=== PATIENT | female | born 1955 | race Caucasian/White ===

== ENCOUNTER 2017-08-01 01:45 | Emergency (ER) | payer MEDICARE, MEDICAID ==
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
[2017-08-01] MEDS ORDERED: fentaNYL 100 MCG/2 ML SDV IVPUSH ONE (02:20)
[2017-08-01] MEDS ORDERED: Sodium Chloride 0.9% 10 ML Syringe FLUSH PRN (02:20)
[2017-08-01] MEDS ORDERED: fentaNYL 100 MCG/2 ML SDV IVPUSH PRN (03:07)
[2017-08-01] MEDS: Acetaminophen/oxyCODONE 325-5 MG Tab PO PRN ×2 (04:28→10:37)
[2017-08-01] MEDS ORDERED: Take Home: Acetaminophen/oxyCODONE 325-5 MG, 2 Tab Pack PO ONE (10:47)
[2017-08-01 11:15] VITALS: BP 138/53
== END 2017-08-01 12:55 ==
LOC: CC.ED 01:45
DX: S42.292A Other displaced fracture of upper end of left humerus, initial encounter for closed fracture (principal); Z79.82 Long term (current) use of aspirin; Z79.899 Other long term (current) drug therapy; W19.XXXA Unspecified fall, initial encounter
CPT/HCPCS: 73030; 96374; 96376; 99285; A9270; J3010; 99284

== ENCOUNTER 2017-12-21 01:37 | Inpatient (IN) | payer MEDICARE, MEDICAID ==
--- NOTE | 2017-12-21 01:59 | EDM.PDOC ---
ED HPI GENERAL MEDICAL PROBLEM - General Chief Complaint: Respiratory Problem Stated Complaint: ? aspirated Time Seen by Provider: 12/21/17 01:59 Source of Information: Reports: Patient, EMS - History of Present Illness INITIAL COMMENTS - FREE TEXT/NARRATIVE: Cata is a 62 year old female with PMH of CVA, humeral fracture, dysphagia, COPD , Type II DM, who presents to the ED via EMS from [facility] with c/o fever, cough , and shortness of breath. They report that she has recently had a feeding tube and was supposed to be on a puree/thickened liquid diet, but insisted on eating solid foods. She reportedly signed a waiver re: the risks of aspiration if she eats solid foods. She had G tube placed following ORIF of humeral fracture and secondary ARDS with worsening dysphagia. assisted staff report they believe she aspirated last evening. She has had a fever as high as 102 deg F and she has had a productive cough. Tonight she started to have a difficult time breathing, so EMS was called and patient was sent to ED. Patient is a poor historian and ROS is difficult to obtain. Onset: Sudden Onset Date: 12/20/17 Duration: Getting Worse Location: Reports: Chest Associated Symptoms: Reports: Cough, cough w sputum, Fever/Chills, Shortness of Breath, Weakness. Denies: Confusion, Chest Pain, Diaphoresis, Headaches, Loss of Appetite, Malaise, Nausea/Vomiting, Rash, Seizure, Syncope Treatments MANAGER OF BROADCAST CONTENT: Reports: Acetaminophen, Home Treatments - Related Data Allergies Allergy/AdvReac Type Severity Reaction Status Date / Time No Known Allergies Allergy Verified 12/21/17 02:19 Home Meds: Home Meds Aspirin [Halfprin] 81 mg PO DAILY 02/14/15 [History] Furosemide [Lasix] 40 mg PO DAILY 02/14/15 [History] metFORMIN HCl [Metformin HCl] 850 mg PO BID 02/14/15 [History] Acetaminophen [Tylenol] 650 mg PO TID 08/01/17 [History] Fluticasone Propionate [Flonase] 2 spray NASBOTH QPM 08/01/17 [History] Insulin Glarg,Human.Rec.Analog [LantUS Solostar] 20 units SUBCUT BEDTIME [History] Magnesium 500 mg PO DAILY 08/01/17 [History] Pilocarpine [Pilocar 1% Ophth Soln] 3 drop BUCCAL BID 08/01/17 [History] Simvastatin [Zocor] 10 mg PO DAILY 08/01/17 [History] Albuterol/Ipratropium [DuoNeb 3.0-0.5 MG/3 ML] 1 vial NEB ASDIRECTED 12/21/17 [ History] Bisacodyl [Dulcolax] 10 mg RC ASDIRECTED 12/21/17 [History] Budesonide [Pulmicort] 0.25 mg IH ASDIRECTED 12/21/17 [History] Docusate Sodium/Sennosides [Senokot-S] 2 each PO BEDTIME 12/21/17 [History] Past Medical History HEENT History: Reports: Other (See Below) Other HEENT History: dysphagia from past CVA Cardiovascular History: Reports: Heart Failure, High Cholesterol, Hypertension, Other (See Below) Other Cardiovascular History: CHF and CVA in the past. Respiratory History: Reports: COPD Gastrointestinal History: Reports: Chronic Constipation, GERD Genitourinary History: Reports: UTI, Recurrent Other Genitourinary History: Urinary incontinence at times Other Musculoskeletal History: Patient uses w/c to get around, poor jont mobility. Hx of CVA's and TIA's. Neurological History: Reports: CVA, Neuropathy, Diabetic, Neuropathy, Peripheral Psychiatric History: Reports: Dementia, Depression, Mood Swings Endocrine/Metabolic History: Reports: Diabetes, Type II, Obesity/BMI 30+ - Past Surgical History Other Musculoskeletal Surgeries/Procedures:: Left Humerous fx on 08/01/17 Social & Family History - Tobacco Use Smoking Status *Q: Unknown Ever Smoked Second Hand Smoke Exposure: No ED ROS GENERAL - Review of Systems Review Of Systems: See Below Constitutional: Reports: Fever, Weakness, Fatigue HEENT: Reports: No Symptoms Respiratory: Reports: Shortness of Breath, Cough, Sputum Cardiovascular: Reports: Dyspnea on Exertion GI/Abdominal: Reports: No Symptoms : Reports: No Symptoms Musculoskeletal: Reports: No Symptoms Neurological: Reports: No Symptoms Psychiatric: Reports: No Symptoms ED EXAM, GENERAL - Physical Exam Exam: See Below General Appearance: Alert, WD/WN, Mild Distress Head: Atraumatic, Normocephalic Neck: Normal Inspection, Supple, Non-Tender, Full Range of Motion Respiratory/Chest: Rhonchi, Wheezing, Retractions Cardiovascular: Normal Peripheral Pulses, Regular Rate, Rhythm, No Edema, No Gallop, No JVD, No Murmur, No Rub Peripheral Pulses: 2+: Dorsalis Pedis (L), Dorsalis Pedis (R) GI/Abdominal: Normal Bowel Sounds, Soft, Non-Tender, No Organomegaly, No Distention, No Abnormal Bruit, No Mass Back Exam: Normal Inspection, Full Range of Motion, NT Extremities: Normal Inspection, Normal Range of Motion, Non-Tender, Normal Capillary Refill, No Pedal Edema Neurological: Alert, Oriented, CN II-XII Intact Skin Exam: Warm, Dry, Intact, Normal Color, No Rash Lymphatic: No Adenopathy Course - Vital Signs Last Recorded V/S: Last Vital Signs Temp 96.7 F 12/22/17 03:51 Pulse 69 12/22/17 03:51 Resp 20 12/22/17 03:51 BP 109/55 L 12/22/17 03:51 Pulse Ox 93 L 12/22/17 03:51 - Orders/Labs/Meds Orders: Medication Orders Acetaminophen (Tylenol) 650 mg PO Q4H PRN PRN Reason: Pain (Mild 1-3)/fever Albuterol/Ipratropium (Duoneb 3.0-0.5 Mg/3 Ml) [address] [facility] Last Admin: 12/22/17 08:13 Dose: 3 ml Admin: 12/21/17 19:30 Dose: 3 ml Admin: 12/21/17 16:21 Dose: 3 ml Admin: 12/21/17 11:38 Dose: 3 ml Admin: 12/21/17 07:36 Dose: 3 ml Enoxaparin Sodium (Lovenox) 40 mg SUBCUT DAILY@0800 [facility] Last Admin: 12/22/17 08:14 Dose: 40 mg Furosemide (Lasix) 20 mg IVPUSH DAILY@0800 [facility] Last Admin: 12/22/17 08:13 Dose: 20 mg Admin: 12/21/17 09:31 Dose: 20 mg Lactated Ringer's (Ringers, Lactated) 1,000 mls @ 75 mls/hr IV ASDIRECTED [facility] Last Admin: 12/21/17 20:08 Dose: 75 mls/hr Infusion: 12/21/17 19:28 Dose: 75 mls/hr Admin: 12/21/17 06:08 Dose: 75 mls/hr Clindamycin Phosphate 300 mg/ (Premix) 50 mls @ 100 mls/hr IV 0200,0800,1400, 2000 [facility] Last Admin: 12/22/17 07:53 Dose: 100 mls/hr Infusion: 12/22/17 02:26 Dose: 100 mls/hr Admin: 12/22/17 01:56 Dose: 100 mls/hr Infusion: 12/21/17 19:52 Dose: 100 mls/hr Admin: 12/21/17 19:22 Dose: 100 mls/hr Infusion: 12/21/17 14:44 Dose: 100 mls/hr Admin: 12/21/17 14:14 Dose: 100 mls/hr Infusion: 12/21/17 09:30 Dose: 100 mls/hr Admin: 12/21/17 09:00 Dose: 100 mls/hr Insulin Aspart (Novolog) [address] [facility]; Protocol Last Admin: 12/22/17 08:15 Dose: Not Given Admin: 12/21/17 20:15 Dose: 6 units Admin: 12/21/17 17:13 Dose: Admin: 12/21/17 12:07 Dose: Insulin Detemir (Levemir) [address] [facility] Last Admin: 12/22/17 08:16 Dose: Admin: 12/21/17 17:12 Dose: Magnesium Hydroxide (Milk Of Magnesia) 30 ml PO Q12H PRN PRN Reason: Constipation Methylprednisolone Sodium Succinate (Solu-Medrol) 62.5 mg IVPUSH BID@0800,1600 [facility] Last Admin: 12/22/17 08:13 Dose: 62.5 mg Admin: 12/21/17 16:21 Dose: 62.5 mg Admin: 12/21/17 09:31 Dose: 62.5 mg Non-Formulary Medication (Budesonide [Pulmicort]) 0.[address] [facility] Non-Formulary Medication (Pilocarpine [Pilocar 1% Ophth Soln]) [address] [facility] Nystatin (Nystatin Crm) [address] [facility] Last Admin: 12/22/17 08:16 Dose: 1 applic Admin: 12/21/17 19:32 Dose: 1 applic Labs: Laboratory Tests 12/21/17 12/21/17 12/21/17 Range/Units 02:20 02:20 02:20 WBC 5.6 (5.0-10.0) 10^3/uL RBC 4.49 (4.00-5.50) 10^6/uL Hgb 11.3 L (12.0-16.0) g/dL Hct 37.3 (37.0-47.0) % MCV 83.1 (82.0-94.0) fL MCH 25.2 L (27.0-32.0) pg MCHC 30.3 L (33.0-38.0) g/dL RDW Coeff of Louise 17.3 H (11.0-15.0) % Plt Count 132 L (150-400) 10^3/uL Neut % (Auto) 53.6 (35-85) % Lymph % (Auto) 34.6 (10-55) % Gem % (Auto) 11.2 (0-16) % Eos % (Auto) 0.4 (0-5) % Baso % (Auto) 0.2 (0-3) % Neut # (Auto) 3.01 (1.80-7.00) 10^3/uL Lymph # (Auto) 1.94 (1.00-4.80) 10^3/uL Gem # (Auto) 0.63 (0.00-0.80) 10^3/uL Eos # (Auto) 0.02 (0.00-0.45) 10^3/uL Baso # (Auto) 0.01 10^3/uL D-Dimer, Quantitative 0.49 (0.00-0.50) Sodium 143 (136-145) mEq/L Potassium 3.8 D (3.5-5.0) mEq/L Chloride 105 (98-106) mEq/L Carbon Dioxide 34 H (21-32) mmol/L BUN 21 H (7-18) mg/dL Creatinine 1.4 H (0.6-1.0) mg/dL Est Cr Clr Drug Dosing 36.44 mL/min Estimated GFR (MDRD) 38 L (>=60) mL/min Glucose 126 H D (75-99) mg/dL Calcium 9.3 (8.4-10.1) mg/dL Total Bilirubin 0.2 (0.0-1.0) mg/dL AST 18 (15-37) U/L ALT 16 (12-78) U/L Alkaline Phosphatase 55 (46-116) U/L C-Reactive Protein 5.4 H (0.2-0.8) mg/dL NT-Pro-B Natriuret Pep 1361 H (0-1000) pg/mL Total Protein 7.0 (6.4-8.2) g/dL Albumin 2.7 L (3.4-5.0) g/dL Meds: Medications Generic Name Dose Route Start Last Admin Trade Name Freq PRN Reason Stop Dose Admin Acetaminophen 650 mg 12/21/17 04:41 Tylenol PO Q4H PRN Pain (Mild 1-3)/fever Albuterol/Ipratropium 3 ml 12/21/17 08:00 12/22/17 08:13 Duoneb 3.0-0.5 Mg/3 Ml NEB 3 ml QID NIKKY Administration Enoxaparin Sodium 40 mg 12/22/17 08:00 12/22/17 08:14 Lovenox SUBCUT 40 mg DAILY@0800 NIKKY Administration Furosemide 20 mg 12/21/17 09:15 12/22/17 08:13 Lasix IVPUSH 20 mg DAILY@0800 NIKKY Administration Lactated Ringer's 1,000 mls @ 75 mls/hr 12/21/17 04:41 12/21/17 20:08 Ringers, Lactated IV 75 mls/hr ASDIRECTED NIKKY Administration Clindamycin Phosphate 300 mg/ 50 mls @ 100 mls/hr 12/21/17 09:00 12/22/17 07: 53 Premix IV 100 mls/hr 0200,0800,1400,2000 [facility] Administration Insulin Aspart 0 unit 12/21/17 12:00 12/22/17 08:15 Novolog SUBCUT Not Given WITHMEALSANDBED [facility] Protocol Insulin Detemir 10 unit 12/21/17 17:30 12/22/17 08:16 Levemir SUBCUT Not Given BIDMEALS [facility] Magnesium Hydroxide 30 ml 12/21/17 04:41 Milk Of Magnesia PO Q12H PRN Constipation Methylprednisolone Sodium Succinate 62.5 mg 12/21/17 09:00 12/22/17 08:13 Solu-Medrol IVPUSH 62.5 mg BID@0800,1600 [facility] Administration Non-Formulary Medication 0.25 mg 12/21/17 09:00 Budesonide [Pulmicort] IH ASDIRECTED [facility] Non-Formulary Medication 3 drop 12/21/17 09:00 Pilocarpine [Pilocar 1% Ophth Soln] BUCCAL BID NIKKY Nystatin 0 gm 12/21/17 20:00 12/22/17 08:16 Nystatin Crm TOP 1 applic BID NIKKY Administration Discontinued Medications Generic Name Dose Route Start Last Admin Trade Name Freq PRN Reason Stop Dose Admin Ceftriaxone Sodium 1 gm 12/21/17 04:00 12/21/17 05:14 Rocephin IVPUSH 1 gm Q24H NIKKY Administration Ceftriaxone Sodium 1 gm 12/22/17 08:00 Rocephin IVPUSH DAILY@0800 [facility] Enoxaparin Sodium 40 mg 12/21/17 05:00 12/21/17 05:15 Lovenox SUBCUT 40 mg Q24H NIKKY Administration Azithromycin 500 mg/ Sodium 250 mls @ 250 mls/hr 12/21/17 05:00 12/21/17 05: 14 Chloride IV 250 mls/hr Q24H NIKKY Administration Azithromycin 500 mg/ Sodium 250 mls @ 250 mls/hr 12/22/17 08:00 Chloride IV DAILY@0800 [facility] Clindamycin Phosphate 300 mg/ 50 mls @ 100 mls/hr 12/21/17 09:00 12/21/17 09: 54 Premix IV Not Given Q6H [facility] Clindamycin Phosphate 300 mg/ 50 mls @ 100 mls/hr 12/21/17 12:[address] [facility] Insulin Detemir 10 unit 12/21/17 20:[address] [facility] Departure - Departure Time of Disposition: 03:03 Disposition: Admitted As Inpatient 67 Condition: Fair Clinical Impression: Dysphagia causing pulmonary aspiration with swallowing, Acute renal insufficiency Aspiration into respiratory tract Qualifiers: Encounter type: initial encounter Qualified Code(s): T17.908A - Unspecified foreign body in respiratory tract, part unspecified causing other injury, initial encounter Type II diabetes mellitus Qualifiers: Diabetes mellitus ad terminal makeup operator insulin use: with ad terminal makeup operator use Diabetes mellitus complication status: with hyperglycemia Qualified Code(s): E11.65 - Type 2 diabetes mellitus with hyperglycemia - Discharge Information - Problem List & Annotations (1) Acute renal insufficiency SNOMED Code(s): 281264845 Code(s): N28.9 - DISORDER OF KIDNEY AND URETER, UNSPECIFIED Status: Acute Current Visit: No (2) Aspiration into respiratory tract SNOMED Code(s): 051628208 Code(s): T17.908A - UNSP FB IN RESP TRACT, PART UNSP CAUSING OTH INJURY, INIT Status: Acute Priority: High Current Visit: Yes Qualifiers: Encounter type: initial encounter Qualified Code(s): T17.908A - Unspecified foreign body in respiratory tract, part unspecified causing other injury, initial encounter (3) Type II diabetes mellitus SNOMED Code(s): 36027982 Code(s): E11.9 - TYPE 2 DIABETES MELLITUS WITHOUT COMPLICATIONS Status: Chronic Priority: Medium Current Visit: Yes Qualifiers: Diabetes mellitus shelter insulin use: with ad terminal makeup operator use Diabetes mellitus complication status: with hyperglycemia Qualified Code(s): E11.65 - Type 2 diabetes mellitus with hyperglycemia; Z79.4 - intermediate project manager (current) use of insulin (4) Dysphagia causing pulmonary aspiration with swallowing SNOMED Code(s): 61276633 Code(s): R13.19 - OTHER DYSPHAGIA Status: Acute Current Visit: No - Problem List Review Problem List Initiated/Reviewed/Updated: Yes - Assessment/Plan Admission H&P: Please use this note as an admission H&P Plan: Admit acute with telemetry to Dr. Hirsch IV Rocephin and azithromycin LR @ 75 mL/hr Dr. Hirsch to see patient in am
[2017-12-21] MEDS ORDERED: cefTRIAXone 1 GM Vial IVPUSH SCH (04:00)
[2017-12-21] MEDS ORDERED: Acetaminophen 325 MG Tab PO PRN (04:41)
[2017-12-21] MEDS ORDERED: Magnesium Hydroxide 400 MG/5 ML Susp 30 ML Cup PO PRN (04:41)
[2017-12-21] MEDS ORDERED: Enoxaparin 40 MG/0.4 ML Syringe SUBCUT SCH (05:00)
[2017-12-21] MEDS ORDERED: Azithromycin 500 MG in Sodium Chloride 0.9% 250 ML IV SCH (05:00)
[2017-12-21] MEDS: Lactated Ringers 1,000 ML IV SCH ×2 (06:08→20:08)
[2017-12-21] MEDS: Albuterol/Ipratropium 3.0-0.5 MG/3 ML Neb Soln NEB SCH ×4 (07:36→19:30)
[2017-12-21] MEDS ORDERED: PILOCARPINE BUCCAL SCH (09:00)
[2017-12-21] MEDS ORDERED: Non-Formulary Medication 1 Each (Budesonide [Pulmicort] 0.25 MG) IH SCH (09:00)
[2017-12-21] MEDS: Clindamycin Phosphate in D5W 300 MG in Premix Bag 1 BAG IV SCH ×6 (09:00→19:22)
[2017-12-21] MEDS ORDERED: Clindamycin Phosphate in D5W 300 MG in Premix Bag 1 BAG IV SCH ×4 (09:00→12:00)
[2017-12-21] MEDS: methylPREDNISolone Sodium Succinate 125 MG/2 ML SDV IVPUSH SCH ×2 (09:31→16:21)
[2017-12-21] MEDS: Furosemide 20 MG/2 ML VIAL IVPUSH SCH (09:31)
--- NOTE | 2017-12-21 11:37 | PCM.PN ---
- General Info Date of Service: 12/21/17 Admission Dx/Problem (Free Text): Aspiration Pneumonia Functional Status: Denies: Tolerating Diet, Ambulating - Review of Systems General: Reports: Fever, Weakness, Fatigue HEENT: Reports: No Symptoms Pulmonary: Reports: Shortness of Breath, Cough, Sputum Cardiovascular: Denies: Chest Pain, Edema, Lightheadedness Gastrointestinal: Denies: Abdominal Pain, Nausea, Vomiting Skin: Reports: No Symptoms - Patient Data Vitals - Most Recent: Last Vital Signs Temp 99.8 F 12/21/17 07:18 Pulse 83 12/21/17 07:18 Resp 20 12/21/17 07:18 BP 105/59 L 12/21/17 07:18 Pulse Ox 97 12/21/17 07:18 Weight - Most Recent: 204 lb Lab Results Last 24 Hours: Laboratory Results - last 24 hr 12/21/17 12/21/17 12/21/17 Range/Units 02:20 02:20 02:20 WBC 5.6 (5.0-10.0) 10^3/uL RBC 4.49 (4.00-5.50) 10^6/uL Hgb 11.3 L (12.0-16.0) g/dL Hct 37.3 (37.0-47.0) % MCV 83.1 (82.0-94.0) fL MCH 25.2 L (27.0-32.0) pg MCHC 30.3 L (33.0-38.0) g/dL RDW Coeff of Louise 17.3 H (11.0-15.0) % Plt Count 132 L (150-400) 10^3/uL Neut % (Auto) 53.6 (35-85) % Lymph % (Auto) 34.6 (10-55) % [place] % (Auto) 11.2 (0-16) % Eos % (Auto) 0.4 (0-5) % Baso % (Auto) 0.2 (0-3) % Neut # (Auto) 3.01 (1.80-7.00) 10^3/uL Lymph # (Auto) 1.94 (1.00-4.80) 10^3/uL [place] # (Auto) 0.63 (0.00-0.80) 10^3/uL Eos # (Auto) 0.02 (0.00-0.45) 10^3/uL Baso # (Auto) 0.01 10^3/uL D-Dimer, Quantitative 0.49 (0.00-0.50) Sodium 143 (136-145) mEq/L Potassium 3.8 D (3.5-5.0) mEq/L Chloride 105 (98-106) mEq/L Carbon Dioxide 34 H (21-32) mmol/L BUN 21 H (7-18) mg/dL Creatinine 1.4 H (0.6-1.0) mg/dL Est Cr Clr Drug Dosing 36.44 mL/min Estimated GFR (MDRD) 38 L (>=60) mL/min Glucose 126 H D (75-99) mg/dL POC Glucose (75-105) mg/dl Calcium 9.3 (8.4-10.1) mg/dL Total Bilirubin 0.2 (0.0-1.0) mg/dL AST 18 (15-37) U/L ALT 16 (12-78) U/L Alkaline Phosphatase 55 (46-116) U/L C-Reactive Protein 5.4 H (0.2-0.8) mg/dL NT-Pro-B Natriuret Pep 1361 H (0-1000) pg/mL Total Protein 7.0 (6.4-8.2) g/dL Albumin 2.7 L (3.4-5.0) g/dL 12/21/17 Range/Units 07:49 WBC (5.0-10.0) 10^3/uL RBC (4.00-5.50) 10^6/uL Hgb (12.0-16.0) g/dL Hct (37.0-47.0) % MCV (82.0-94.0) fL MCH (27.0-32.0) pg MCHC (33.0-38.0) g/dL RDW Coeff of Louise (11.0-15.0) % Plt Count (150-400) 10^3/uL Neut % (Auto) (35-85) % Lymph % (Auto) (10-55) % [place] % (Auto) (0-16) % Eos % (Auto) (0-5) % Baso % (Auto) (0-3) % Neut # (Auto) (1.80-7.00) 10^3/uL Lymph # (Auto) (1.00-4.80) 10^3/uL [place] # (Auto) (0.00-0.80) 10^3/uL Eos # (Auto) (0.00-0.45) 10^3/uL Baso # (Auto) 10^3/uL D-Dimer, Quantitative (0.00-0.50) Sodium (136-145) mEq/L Potassium (3.5-5.0) mEq/L Chloride (98-106) mEq/L Carbon Dioxide (21-32) mmol/L BUN (7-18) mg/dL Creatinine (0.6-1.0) mg/dL Est Cr Clr Drug Dosing mL/min Estimated GFR (MDRD) (>=60) mL/min Glucose (75-99) mg/dL POC Glucose 105 (75-105) mg/dl Calcium (8.4-10.1) mg/dL Total Bilirubin (0.0-1.0) mg/dL AST (15-37) U/L ALT (12-78) U/L Alkaline Phosphatase (46-116) U/L C-Reactive Protein (0.2-0.8) mg/dL NT-Pro-B Natriuret Pep (0-1000) pg/mL Total Protein (6.4-8.2) g/dL Albumin (3.4-5.0) g/dL Ozzy Results Last 24 Hours: Microbiology 12/21/17 06:31 Gram Stain - Final Sputum - Expectorated Med Orders - Current: Current Medications Acetaminophen (Tylenol) 650 mg PO Q4H PRN PRN Reason: Pain (Mild 1-3)/fever Albuterol/Ipratropium (Duoneb 3.0-0.5 Mg/3 Ml) 3 ml NEB QID [facility] Last Admin: 12/21/17 07:36 Dose: 3 ml Enoxaparin Sodium (Lovenox) 40 mg SUBCUT DAILY@0800 [facility] Furosemide (Lasix) 20 mg IVPUSH DAILY@0800 [facility] Last Admin: 12/21/17 09:31 Dose: 20 mg Lactated Ringer's (Ringers, Lactated) 1,000 mls @ 75 mls/hr IV ASDIRECTED [facility] Last Admin: 12/21/17 06:08 Dose: 75 mls/hr Clindamycin Phosphate 300 mg/ (Premix) 50 mls @ 100 mls/hr IV 0200,0800,1400, 2000 [facility] Last Admin: 12/21/17 09:00 Dose: 100 mls/hr Insulin Aspart (Novolog) 0 unit SUBCUT WITHMEALSANDBED [facility]; Protocol Insulin Detemir (Levemir) 10 unit SUBCUT BIDMEALS [facility] Magnesium Hydroxide (Milk Of Magnesia) 30 ml PO Q12H PRN PRN Reason: Constipation Methylprednisolone Sodium Succinate (Solu-Medrol) 62.5 mg IVPUSH BID@0800,1600 [facility] Last Admin: 12/21/17 09:31 Dose: 62.5 mg Non-Formulary Medication (Budesonide [Pulmicort]) 0.25 mg IH ASDIRECTED [facility] Non-Formulary Medication (Pilocarpine [Pilocar 1% Ophth Soln]) 3 drop BUCCAL BID [facility] Discontinued Medications Ceftriaxone Sodium (Rocephin) 1 gm IVPUSH Q24H [facility] Last Admin: 12/21/17 05:14 Dose: 1 gm Ceftriaxone Sodium (Rocephin) 1 gm IVPUSH DAILY@0800 [facility] Enoxaparin Sodium (Lovenox) 40 mg SUBCUT Q24H [facility] Last Admin: 12/21/17 05:15 Dose: 40 mg Azithromycin 500 mg/ Sodium (Chloride) 250 mls @ 250 mls/hr IV Q24H [facility] Last Admin: 12/21/17 05:14 Dose: 250 mls/hr Azithromycin 500 mg/ Sodium (Chloride) 250 mls @ 250 mls/hr IV DAILY@0800 [facility] Clindamycin Phosphate 300 mg/ (Premix) 50 mls @ 100 mls/hr IV Q6H [facility] Last Admin: 12/21/17 09:54 Dose: Not Given Clindamycin Phosphate 300 mg/ (Premix) 50 mls @ 100 mls/hr IV Q6H [facility] Insulin Detemir (Levemir) 10 unit SUBCUT BIDMEALS [facility] - Exam Quality Assessment: Supplemental Oxygen General: Lethargic HEENT: No: Mucous Membr. Moist/[place] Neck: Supple Lungs: Decreased Breath Sounds, Rhonchi Cardiovascular: Regular Rate, Regular Rhythm GI/Abdominal Exam: Normal Bowel Sounds, Soft, Non-Tender Extremities: Normal Inspection, Pedal Edema (trace of edema) Skin: Warm, Dry Neurological: No New Focal Deficit - Problem List & Annotations (1) Aspiration into respiratory tract SNOMED Code(s): 135031068 Code(s): T17.908A - UNSP FB IN RESP TRACT, PART UNSP CAUSING OTH INJURY, INIT Status: Acute Priority: High Current Visit: Yes Qualifiers: Encounter type: initial encounter Qualified Code(s): T17.908A - Unspecified foreign body in respiratory tract, part unspecified causing other injury, initial encounter (2) Type II diabetes mellitus SNOMED Code(s): 47819857 Code(s): E11.9 - TYPE 2 DIABETES MELLITUS WITHOUT COMPLICATIONS Status: Chronic Priority: Medium Current Visit: Yes Qualifiers: 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 Diabetes mellitus complication status: with hyperglycemia Qualified Code(s): E11.65 - Type 2 diabetes mellitus with hyperglycemia; 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 - Problem List Review Problem List Initiated/Reviewed/Updated: Yes - My Orders Last 24 Hours: My Active Orders 12/21/17 09:00 Budesonide [Pulmicort] 0.25 mg IH ASDIRECTED Pilocarpine [Pilocar 1% Ophth Soln] 3 drop BUCCAL BID methylPREDNISolone Sod Succ [Solu-MEDROL] 62.5 mg IVPUSH BID@0800,1600 12/21/17 09:15 Furosemide [Lasix] 20 mg IVPUSH DAILY@0800 12/21/17 12:00 Insulin Aspart [NovoLOG] See Protocol SUBCUT WITHMEALSANDBED 12/22/17 05:11 BASIC METABOLIC PANEL,BMP [CHEM] AM C-REACTIVE PROTEIN [CHEM] AM CBC WITH AUTO DIFF [HEME] AM - Assessment Assessment:: Aspiration Pneumonia - Plan Plan:: Patient somewhat lethargic this am but does answer questions when asked. Denies shortness of breath or any pain. She does admit to a cough. Still febrile through the night, low grade this am. Kept NPO at this time. Oxygen on at 5 liters, will transition to a nasal cannula from the NRB and follow this. Patient has a feeding tube, apparently signed a waiver at the [facility] to allow her to eat and feel she coughed and choked last night, possibly aspirated. Chest xray clear last night yet in the ED. She states her cough is moist but no production with it. Labs from last night reviewed. WBC 5.6, CRP 5.4. Will switch patient to Cleocin and stop the Rocephin and Zithromax. Start Solu Medrol and elevated glucose with sliding scale as needed. Continue DuoNebs. Repeat labs in am.
[2017-12-21] MEDS: Insulin Aspart 100 Units/ML 3 ML Pen SUBCUT SCH ×3 (12:07→20:15)
[2017-12-21] MEDS: Insulin Detemir 100 Units/ML 3 ML Pen SUBCUT SCH (17:12)
[2017-12-21] MEDS: Nystatin Crm 30 GM Tube TOP SCH (19:32)
[2017-12-21] MEDS ORDERED: Insulin Detemir 100 Units/ML 3 ML Pen SUBCUT SCH (20:00)
[2017-12-22] MEDS: Clindamycin Phosphate in D5W 300 MG in Premix Bag 1 BAG IV SCH ×8 (01:56→19:19)
[2017-12-22] MEDS ORDERED: cefTRIAXone 1 GM Vial IVPUSH SCH (08:00)
[2017-12-22] MEDS ORDERED: Azithromycin 500 MG in Sodium Chloride 0.9% 250 ML IV SCH (08:00)
[2017-12-22] MEDS: Furosemide 20 MG/2 ML VIAL IVPUSH SCH (08:13)
[2017-12-22] MEDS: methylPREDNISolone Sodium Succinate 125 MG/2 ML SDV IVPUSH SCH ×2 (08:13→16:46)
[2017-12-22] MEDS: Albuterol/Ipratropium 3.0-0.5 MG/3 ML Neb Soln NEB SCH ×4 (08:13→19:22)
[2017-12-22] MEDS: Enoxaparin 40 MG/0.4 ML Syringe SUBCUT SCH (08:14)
[2017-12-22] MEDS: Insulin Aspart 100 Units/ML 3 ML Pen SUBCUT SCH ×4 (08:15→20:11)
[2017-12-22] MEDS: Nystatin Crm 30 GM Tube TOP SCH ×2 (08:16→19:22)
[2017-12-22] MEDS: Insulin Detemir 100 Units/ML 3 ML Pen SUBCUT SCH ×2 (08:16→17:36)
--- NOTE | 2017-12-22 09:07 | PCM.PN ---
- General Info Date of Service: 12/22/17 Admission Dx/Problem (Free Text): Aspiration Pneumonia Functional Status: Reports: Pain Controlled. Denies: Tolerating Diet, Ambulating - Review of Systems General: Reports: Weakness, Fatigue. Denies: Fever HEENT: Reports: No Symptoms Pulmonary: Reports: Cough. Denies: Shortness of Breath Cardiovascular: Denies: Chest Pain, Edema, Lightheadedness Gastrointestinal: Denies: Abdominal Pain, Nausea, Vomiting Musculoskeletal: Reports: No Symptoms Skin: Reports: No Symptoms Neurological: Reports: Pre-Existing Deficit, Weakness - Patient Data Vitals - Most Recent: Last Vital Signs Temp 96.7 F 12/22/17 03:51 Pulse 69 12/22/17 03:51 Resp 20 12/22/17 03:51 BP 109/55 L 12/22/17 03:51 Pulse Ox 93 L 12/22/17 03:51 Weight - Most Recent: 204 lb I&O - Last 24 Hours: Intake & Output 12/21/17 12/22/17 12/22/17 22:59 06:59 14:59 Intake Total 1050 50 Output Total 100 Balance 1050 -50 Lab Results Last 24 Hours: Laboratory Results - last 24 hr 12/21/17 12/21/17 12/22/17 Range/Units 11:51 17:03 06:55 WBC 4.9 L (5.0-10.0) 10^3/uL RBC 4.36 (4.00-5.50) 10^6/uL Hgb 10.8 L (12.0-16.0) g/dL Hct 36.7 L (37.0-47.0) % MCV 84.2 (82.0-94.0) fL MCH 24.8 L (27.0-32.0) pg MCHC 29.4 L (33.0-38.0) g/dL RDW Coeff of Louise 16.7 H (11.0-15.0) % Plt Count 133 L (150-400) 10^3/uL Neut % (Auto) 62.2 (35-85) % Lymph % (Auto) 27.4 (10-55) % [place] % (Auto) 10.4 (0-16) % Eos % (Auto) 0 (0-5) % Baso % (Auto) 0 (0-3) % Neut # (Auto) 3.06 (1.80-7.00) 10^3/uL Lymph # (Auto) 1.35 (1.00-4.80) 10^3/uL [place] # (Auto) 0.51 (0.00-0.80) 10^3/uL Eos # (Auto) 0.00 (0.00-0.45) 10^3/uL Baso # (Auto) 0.00 10^3/uL Sodium (136-145) mEq/L Potassium (3.5-5.0) mEq/L Chloride (98-106) mEq/L Carbon Dioxide (21-32) mmol/L BUN (7-18) mg/dL Creatinine (0.6-1.0) mg/dL Est Cr Clr Drug Dosing mL/min Estimated GFR (MDRD) (>=60) mL/min Glucose (75-99) mg/dL POC Glucose 148 H 195 H (75-105) mg/dl Calcium (8.4-10.1) mg/dL C-Reactive Protein (0.2-0.8) mg/dL 12/22/17 Range/Units 06:55 WBC (5.0-10.0) 10^3/uL RBC (4.00-5.50) 10^6/uL Hgb (12.0-16.0) g/dL Hct (37.0-47.0) % MCV (82.0-94.0) fL MCH (27.0-32.0) pg MCHC (33.0-38.0) g/dL RDW Coeff of Louise (11.0-15.0) % Plt Count (150-400) 10^3/uL Neut % (Auto) (35-85) % Lymph % (Auto) (10-55) % [place] % (Auto) (0-16) % Eos % (Auto) (0-5) % Baso % (Auto) (0-3) % Neut # (Auto) (1.80-7.00) 10^3/uL Lymph # (Auto) (1.00-4.80) 10^3/uL [place] # (Auto) (0.00-0.80) 10^3/uL Eos # (Auto) (0.00-0.45) 10^3/uL Baso # (Auto) 10^3/uL Sodium 145 (136-145) mEq/L Potassium 3.7 (3.5-5.0) mEq/L Chloride 107 H (98-106) mEq/L Carbon Dioxide 34 H (21-32) mmol/L BUN 21 H (7-18) mg/dL Creatinine 1.0 (0.6-1.0) mg/dL Est Cr Clr Drug Dosing 51.02 mL/min Estimated GFR (MDRD) 56 L (>=60) mL/min Glucose 155 H (75-99) mg/dL POC Glucose (75-105) mg/dl Calcium 9.1 (8.4-10.1) mg/dL C-Reactive Protein 4.6 H (0.2-0.8) mg/dL Ozzy Results Last 24 Hours: Microbiology 12/21/17 02:53 Aerobic Blood Culture - Preliminary Blood - Venous - Lab Draw NO GROWTH AFTER 1 DAY Anaerobic Blood Culture - Preliminary NO GROWTH AFTER 1 DAY 12/21/17 02:20 Aerobic Blood Culture - Preliminary Blood - Venous NO GROWTH AFTER 1 DAY Anaerobic Blood Culture - Preliminary NO GROWTH AFTER 1 DAY 12/21/17 06:31 Gram Stain - Final Sputum - Expectorated Med Orders - Current: Current Medications Acetaminophen (Tylenol) 650 mg PO Q4H PRN PRN Reason: Pain (Mild 1-3)/fever Albuterol/Ipratropium (Duoneb 3.0-0.5 Mg/3 Ml) 3 ml NEB QID [facility] Last Admin: 12/22/17 08:13 Dose: 3 ml Enoxaparin Sodium (Lovenox) 40 mg SUBCUT DAILY@0800 [facility] Last Admin: 12/22/17 08:14 Dose: 40 mg Furosemide (Lasix) 20 mg IVPUSH DAILY@0800 [facility] Last Admin: 12/22/17 08:13 Dose: 20 mg Lactated Ringer's (Ringers, Lactated) 1,000 mls @ 75 mls/hr IV ASDIRECTED [facility] Last Admin: 12/21/17 20:08 Dose: 75 mls/hr Clindamycin Phosphate 300 mg/ (Premix) 50 mls @ 100 mls/hr IV 0200,0800,1400, 2000 [facility] Last Admin: 12/22/17 07:53 Dose: 100 mls/hr Insulin Aspart (Novolog) 0 unit SUBCUT WITHMEALSANDBED [facility]; Protocol Last Admin: 12/22/17 08:15 Dose: Not Given Insulin Detemir (Levemir) 10 unit SUBCUT BIDMEALS [facility] Last Admin: 12/22/17 08:16 Dose: Not Given Magnesium Hydroxide (Milk Of Magnesia) 30 ml PO Q12H PRN PRN Reason: Constipation Methylprednisolone Sodium Succinate (Solu-Medrol) 62.5 mg IVPUSH BID@0800,1600 [facility] Last Admin: 12/22/17 08:13 Dose: 62.5 mg Non-Formulary Medication (Budesonide [Pulmicort]) 0.25 mg ASDIRECTED [facility] Non-Formulary Medication (Pilocarpine [Pilocar 1% Ophth Soln]) 3 drop BUCCAL BID [facility] Nystatin (Nystatin Crm) 0 gm TOP BID [facility] Last Admin: 12/22/17 08:16 Dose: 1 applic Discontinued Medications Ceftriaxone Sodium (Rocephin) 1 gm IVPUSH Q24H [facility] Last Admin: 12/21/17 05:14 Dose: 1 gm Ceftriaxone Sodium (Rocephin) 1 gm IVPUSH DAILY@0800 [facility] Enoxaparin Sodium (Lovenox) 40 mg SUBCUT Q24H [facility] Last Admin: 12/21/17 05:15 Dose: 40 mg Azithromycin 500 mg/ Sodium (Chloride) 250 mls @ 250 mls/hr IV Q24H [facility] Last Admin: 12/21/17 05:14 Dose: 250 mls/hr Azithromycin 500 mg/ Sodium (Chloride) 250 mls @ 250 mls/hr IV DAILY@0800 [facility] Clindamycin Phosphate 300 mg/ (Premix) 50 mls @ 100 mls/hr IV Q6H [facility] Last Admin: 12/21/17 09:54 Dose: Not Given Clindamycin Phosphate 300 mg/ (Premix) 50 mls @ 100 mls/hr IV Q6H [facility] Insulin Detemir (Levemir) 10 unit SUBCUT BIDMEALS [facility] - Exam Quality Assessment: Supplemental Oxygen General: Alert, Oriented (person and place, does know it's 2018) HEENT: Mucous Membr. Moist/[place] Neck: Supple Lungs: Normal Respiratory Effort, Decreased Breath Sounds Cardiovascular: Regular Rate, Regular Rhythm GI/Abdominal Exam: Normal Bowel Sounds, Soft, Non-Tender Extremities: Normal Inspection, No Pedal Edema Skin: Warm, Dry Neurological: No New Focal Deficit - Problem List & Annotations (1) Aspiration into respiratory tract SNOMED Code(s): 716545612 Code(s): T17.908A - UNSP FB IN RESP TRACT, PART UNSP CAUSING OTH INJURY, INIT Status: Acute Priority: High Current Visit: Yes Qualifiers: Encounter type: initial encounter Qualified Code(s): T17.908A - Unspecified foreign body in respiratory tract, part unspecified causing other injury, initial encounter (2) Type II diabetes mellitus SNOMED Code(s): 98384413 Code(s): E11.9 - TYPE 2 DIABETES MELLITUS WITHOUT COMPLICATIONS Status: Chronic Priority: Medium Current Visit: Yes 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 Diabetes mellitus complication status: with hyperglycemia Qualified Code(s): E11.65 - Type 2 diabetes mellitus with hyperglycemia; Z79.4 - intermodal customer service (current) use of insulin - Problem List Review Problem List Initiated/Reviewed/Updated: Yes - My Orders Last 24 Hours: My Active Orders 12/21/17 09:00 Budesonide [Pulmicort] 0.25 mg IH ASDIRECTED Pilocarpine [Pilocar 1% Ophth Soln] 3 drop BUCCAL BID methylPREDNISolone Sod Succ [Solu-MEDROL] 62.5 mg IVPUSH BID@0800,1600 12/21/17 09:15 Furosemide [Lasix] 20 mg IVPUSH DAILY@0800 12/21/17 12:00 Insulin Aspart [NovoLOG] See Protocol SUBCUT WITHMEALSANDBED 12/21/17 20:00 Nystatin [Nystatin Crm] 0 gm TOP BID 12/22/17 Lunch Soft Diet [DIET] - Assessment Assessment:: Aspiration Pneumonia - Plan Plan:: Patient somewhat lethargic this am but does answer questions when asked. Denies shortness of breath or any pain. She does admit to a cough. Still febrile through the night, low grade this am. Kept NPO at this time. Oxygen on at 5 liters, will transition to a nasal cannula from the NRB and follow this. Patient has a feeding tube, apparently signed a waiver at the [facility] to allow her to eat and feel she coughed and choked last night, possibly aspirated. Chest xray clear last night yet in the ED. She states her cough is moist but no production with it. Labs from last night reviewed. WBC 5.6, CRP 5.4. Will switch patient to Cleocin and stop the Rocephin and Zithromax. Start Solu Medrol and elevated glucose with sliding scale as needed. Continue DuoNebs. Repeat labs in am. Patient answers questions appropriately. Continues to have issues with hypoxia. Did try to wean her to a nasal cannula but when sleeping, she drops down in the 70s oxygen sats. Noted to be a mouth breather. Patient is requesting to eat. She has signed a waiver in the past and again this is questioned but she is aware of the risks and wants to eat. Currently being treated for aspiration and is aware of this. Has not been getting any feedings through her tube, just flushes. Labs this am are stable, WBC 4.9, CRP 4.6. Lung sounds are diminished but clear posteriorly, some rhonchi noted anteriorly/ upper airway. Afebrile Will allow soft diet with thickened liquids as patient is aware of the risks. Continue current meds. Attempt to again wean down to a nasal cannula today. Possible discharge back to [facility] tomorrow.
[2017-12-22] MEDS: Lactated Ringers 1,000 ML IV SCH (10:42)
[2017-12-23] MEDS: Lactated Ringers 1,000 ML IV SCH (00:22)
[2017-12-23] MEDS: Clindamycin Phosphate in D5W 300 MG in Premix Bag 1 BAG IV SCH ×4 (01:49→08:15)
[2017-12-23] MEDS: Furosemide 20 MG/2 ML VIAL IVPUSH SCH (08:16)
[2017-12-23] MEDS: methylPREDNISolone Sodium Succinate 125 MG/2 ML SDV IVPUSH SCH (08:16)
[2017-12-23] MEDS: Albuterol/Ipratropium 3.0-0.5 MG/3 ML Neb Soln NEB SCH ×2 (08:16→13:33)
[2017-12-23] MEDS: Enoxaparin 40 MG/0.4 ML Syringe SUBCUT SCH (08:17)
[2017-12-23] MEDS: Insulin Detemir 100 Units/ML 3 ML Pen SUBCUT SCH (08:18)
[2017-12-23] MEDS: Nystatin Crm 30 GM Tube TOP SCH (08:22)
[2017-12-23] MEDS: Insulin Aspart 100 Units/ML 3 ML Pen SUBCUT SCH ×2 (08:23→13:35)
[2017-12-23 12:33] VITALS: BP 134/57
--- NOTE | 2017-12-23 16:17 | PCM.DCSUM1 ---
Discharge Summary - Hospital Course Free Text/Narrative:: Patient presented per EMS from the [facility] for increased cough and shortness of breath, fever. Staff there worried that she aspirated. Patient has a history of humeral fracture, ARDS and has dysphagia. She has a g tube but has signed a waiver allowing her to eat solid foods knowing the risk of aspiration. She started running a fever yesterday, as high as 102 and had productive cough. Today, having more trouble breathing. Initial lab work up shows a WBC of 5.4, CRP of 5.4, ProBNP 1361. Electrolytes normal. Chest xray initially negative. - Discharge Data Discharge Date: 12/23/17 Discharge Disposition: DC/Tfer to [facility] Condition: Fair - Discharge Diagnosis/Problem(s) (1) Aspiration into respiratory tract SNOMED Code(s): 218073609 ICD Code: T17.908A - UNSP FB IN RESP TRACT, PART UNSP CAUSING OTH INJURY, INIT Status: Acute Priority: High Qualifiers: Encounter type: subsequent encounter Qualified Code(s): T17.908D - Unspecified foreign body in respiratory tract, part unspecified causing other injury, subsequent encounter (2) Type II diabetes mellitus SNOMED Code(s): 91851246 ICD Code: E11.9 - TYPE 2 DIABETES MELLITUS WITHOUT COMPLICATIONS Status: Chronic Priority: Medium Qualifiers: Diabetes mellitus exterminator insulin use: with exterminator use Diabetes mellitus complication status: with hyperglycemia Qualified Code(s): E11.65 - Type 2 diabetes mellitus with hyperglycemia; Z79.4 - senior living (current) use of insulin - Patient Summary/Data Complications: none Hospital Course: Patient has had improvement in overall status since admission. Much more alert , conversing better. Afebrile now. She does continue to have rhonchi in the bases, requiring oxygen when is willing to cooperative. Does not keep the mask on, more compliant with the nasal cannula. Sats do drop when sleeping with the nasal cannula. Patient was requesting to eat solid foods again while here and is aware of the risk, so did proceed with regular diet and thickened liquids. Thus far, has done well with them. She has been up to the chair and tolerating well. Given IV Cleocin, nebs and steroids while here. Covered with sliding scale insulin. WBC did remain stable during stay, now at 4.9. CRP improved down to 4.6. Will discharge back to the [facility]. Continue with oral Cleocin for another week. DuoNebs. Usual meds. Oxygen as needed to keep sats above 90%. - Patient Instructions Diet: Usual Diet as Tolerated Activity: As Tolerated - Discharge Plan Prescriptions/Med Rec: Clindamycin HCl [Cleocin] 300 mg PO Q6H #28 cap Home Medications: Home Meds Aspirin [Halfprin] 81 mg PO DAILY 02/14/15 [History] Furosemide [Lasix] 40 mg PO DAILY 02/14/15 [History] metFORMIN HCl [Metformin HCl] 850 mg PO BID 02/14/15 [History] Acetaminophen [Tylenol] 650 mg PO TID 08/01/17 [History] Fluticasone Propionate [Flonase] 2 spray NASBOTH QPM 08/01/17 [History] Insulin Glarg,Human.Rec.Analog [LantUS Solostar] 20 units SUBCUT BEDTIME [History] Magnesium 500 mg PO DAILY 08/01/17 [History] Pilocarpine [Pilocar 1% Ophth Soln] 3 drop BUCCAL BID 08/01/17 [History] Simvastatin [Zocor] 10 mg PO DAILY 08/01/17 [History] Albuterol/Ipratropium [DuoNeb 3.0-0.5 MG/3 ML] 1 vial NEB ASDIRECTED 12/21/17 [ History] Bisacodyl [Dulcolax] 10 mg RC ASDIRECTED 12/21/17 [History] Budesonide [Pulmicort] 0.25 mg IH ASDIRECTED 12/21/17 [History] Docusate Sodium/Sennosides [Senokot-S] 2 each PO BEDTIME 12/21/17 [History] Clindamycin HCl [Cleocin] 300 mg PO Q6H #28 cap 12/23/17 [Rx] Forms: ED Department Discharge Referrals: Jay Hirsch MD [Primary Care Provider] - - Discharge Summary/Plan Comment DC Time >30 min.: No Discharge Summary/Plan Comment: Return back to [facility]. Cleocin 300 mg every 6 hours for a week. Oxygen. Nebs - General Info Date of Service: 12/23/17 Admission Dx/Problem (Free Text: Aspiration Pneumonia Functional Status: Reports: Pain Controlled, Tolerating Diet - Review of Systems General: Reports: Weakness, Fatigue. Denies: Fever HEENT: Reports: Rhinitis Pulmonary: Reports: Shortness of Breath, Cough Cardiovascular: Denies: Chest Pain, Edema, Lightheadedness Gastrointestinal: Denies: Abdominal Pain, Nausea, Vomiting Genitourinary: Reports: No Symptoms Musculoskeletal: Reports: No Symptoms Skin: Reports: No Symptoms Neurological: Reports: Pre-Existing Deficit - Patient Data Vitals - Most Recent: Last Vital Signs Temp 96.7 F 12/23/17 12:00 Pulse 71 12/23/17 12:00 Resp 16 12/23/17 12:00 BP 134/57 L 12/23/17 12:00 Pulse Ox 92 L 12/23/17 12:00 Weight - Most Recent: 204 lb I&O - Last 24 hours: Intake & Output 12/23/17 12/23/17 12/23/17 06:59 14:59 22:59 Intake Total 1150 Output Total 300 Balance 850 Lab Results - Last 24 hrs: Laboratory Results - last 24 hr 12/21/17 12/22/17 12/22/17 Range/Units 20:11 08:09 12:07 POC Glucose 214 H 148 H 238 H (75-105) mg/dl 12/22/17 12/22/17 12/23/17 Range/Units 16:18 20:07 07:14 POC Glucose 259 H 322 H 177 H (75-105) mg/dl 12/23/17 Range/Units 11:24 POC Glucose 279 H (75-105) mg/dl MELVINA Results - Last 24 hrs: Microbiology 12/21/17 06:31 Gram Stain - Final Sputum - Expectorated Sputum Culture - Preliminary Gram Negative Rods 12/21/17 02:53 Aerobic Blood Culture - Preliminary Blood - Venous - Lab Draw NO GROWTH AFTER 2 DAYS Anaerobic Blood Culture - Preliminary NO GROWTH AFTER 2 DAYS 12/21/17 02:20 Aerobic Blood Culture - Preliminary Blood - Venous NO GROWTH AFTER 2 DAYS Anaerobic Blood Culture - Preliminary NO GROWTH AFTER 2 DAYS Med Orders - Current: Current Medications Discontinued Medications Acetaminophen (Tylenol) 650 mg PO Q4H PRN PRN Reason: Pain (Mild 1-3)/fever Albuterol/Ipratropium (Duoneb 3.0-0.5 Mg/3 Ml) 3 ml NEB QID NIKKY Last Admin: 12/23/17 13:33 Dose: Not Given Ceftriaxone Sodium (Rocephin) 1 gm IVPUSH Q24H [facility] Last Admin: 12/21/17 05:14 Dose: 1 gm Ceftriaxone Sodium (Rocephin) 1 gm IVPUSH DAILY@0800 [facility] Enoxaparin Sodium (Lovenox) 40 mg SUBCUT Q24H [facility] Last Admin: 12/21/17 05:15 Dose: 40 mg Enoxaparin Sodium (Lovenox) 40 mg SUBCUT DAILY@0800 [facility] Last Admin: 12/23/17 08:17 Dose: 40 mg Furosemide (Lasix) 20 mg IVPUSH DAILY@0800 [facility] Last Admin: 12/23/17 08:16 Dose: 20 mg Azithromycin 500 mg/ Sodium (Chloride) 250 mls @ 250 mls/hr IV Q24H [facility] Last Admin: 12/21/17 05:14 Dose: 250 mls/hr Lactated Ringer's (Ringers, Lactated) 1,000 mls @ 75 mls/hr IV ASDIRECTED [facility] Last Admin: 12/23/17 00:22 Dose: 75 mls/hr Azithromycin 500 mg/ Sodium (Chloride) 250 mls @ 250 mls/hr IV DAILY@0800 [facility] Clindamycin Phosphate 300 mg/ (Premix) 50 mls @ 100 mls/hr IV Q6H [facility] Last Admin: 12/21/17 09:54 Dose: Not Given Clindamycin Phosphate 300 mg/ (Premix) 50 mls @ 100 mls/hr IV Q6H [facility] Clindamycin Phosphate 300 mg/ (Premix) 50 mls @ 100 mls/hr IV 0200,0800,1400, 2000 [facility] Last Admin: 12/23/17 08:15 Dose: 100 mls/hr Insulin Aspart (Novolog) 0 unit SUBCUT WITHMEALSANDBED [facility]; Protocol Last Admin: 12/23/17 13:35 Dose: Not Given Insulin Detemir (Levemir) 10 unit SUBCUT BIDMEALS [facility] Insulin Detemir (Levemir) 10 unit SUBCUT BIDMEALS [facility] Last Admin: 12/23/17 08:18 Dose: 10 units Magnesium Hydroxide (Milk Of Magnesia) 30 ml PO Q12H PRN PRN Reason: Constipation Methylprednisolone Sodium Succinate (Solu-Medrol) 62.5 mg IVPUSH BID@0800,1600 [facility] Last Admin: 12/23/17 08:16 Dose: 62.5 mg Non-Formulary Medication (Budesonide [Pulmicort]) 0.25 mg IH ASDIRECTED [facility] Non-Formulary Medication (Pilocarpine [Pilocar 1% Ophth Soln]) 3 drop BUCCAL BID [facility] Nystatin (Nystatin Crm) 0 gm TOP BID [facility] Last Admin: 12/23/17 08:22 Dose: 1 applic - Exam General: Reports: Alert, Oriented HEENT: Reports: Mucous Membr. Moist/[place] Neck: Reports: Supple Lungs: Reports: Rhonchi Cardiovascular: Reports: Regular Rate, Regular Rhythm GI/Abdominal Exam: Normal Bowel Sounds, Soft, Non-Tender Extremities: Normal Inspection, No Pedal Edema Skin: Reports: Warm, Dry Neurological: Reports: No New Focal Deficit
== END 2017-12-23 13:10 | disposition home or self-care (01) | DRG 179 ==
LOC: CC.ED 01:37 → CC.MS 02:57 → UNDOADMIN 03:00 → CC.MS 03:00
PROVIDERS: ADMIT Nurse Practitioner Family; ATTEND Family Medicine
DX: T17.800A Unspecified foreign body in other parts of respiratory tract causing asphyxiation, initial encounter (principal); R50.9 Fever, unspecified; R05 Cough; R06.02 Shortness of breath; J69.0 Pneumonitis due to inhalation of food and vomit; J44.9 Chronic obstructive pulmonary disease, unspecified; R53.1 Weakness; I69.391 Dysphagia following cerebral infarction; R13.10 Dysphagia, unspecified; I11.0 Hypertensive heart disease with heart failure; I50.9 Heart failure, unspecified; E78.00 Pure hypercholesterolemia, unspecified; F03.90 Unspecified dementia, unspecified severity, without behavioral disturbance, psychotic disturbance, mood disturbance, and anxiety; F32.9 Major depressive disorder, single episode, unspecified; E66.9 Obesity, unspecified; R53.83 Other fatigue; E11.65 Type 2 diabetes mellitus with hyperglycemia; N28.9 Disorder of kidney and ureter, unspecified; K21.9 Gastro-esophageal reflux disease without esophagitis; K59.09 Other constipation; R32 Unspecified urinary incontinence; R09.02 Hypoxemia; E11.42 Type 2 diabetes mellitus with diabetic polyneuropathy; Z68.35 Body mass index [BMI] 35.0-35.9, adult; Z87.440 Personal history of urinary (tract) infections; Z79.84 Long term (current) use of oral hypoglycemic drugs; Z79.82 Long term (current) use of aspirin; Z79.899 Other long term (current) drug therapy
CPT/HCPCS: 36415; 71046; 80048; 80053; 82962; 83880; 85025; 85379; 86140; 87040; 87070; 87077; 87186; 87205; 94640; 99285; A9270-GY; J0456; J0696; J1650; J1815-GY; J1940; J2930; J7050; J7120